=== PATIENT | female | born 1995 | race Caucasian/White ===

== ENCOUNTER 2024-04-01 19:45 | Inpatient (IN) | payer OTHER, SELFPAY ==
[2024-04-01 19:54] VITALS: BP 106/49; BMI 34.6
[2024-04-01] MEDS: CYTOTEC 50 MICROGRAM VAG (20:30)
[2024-04-01] MEDS: LR 1000 IV (20:30)
[2024-04-01 20:34] LABS: % Basophils 0.5 % (0-2); % Eosinophils 0.8 % (0-6); % Immature Granulocytes 3.7 % (0-0.5); % Lymphocytes 13.2 % (20.5-51.1); % Monocytes 6.6 % (1.7-9.3); % Neutrophils 75.2 % (42.2-75.2); Absolute Basophils 0.1 10^3/uL (0-0.2); Absolute Eosinophils 0.1 10^3/uL (0-0.7); Absolute Immature Granulocytes 0.6 10^3/uL (0-0.05); Absolute Neutrophils 11.2 10^3/uL (1.4-6.5); Hematocrit 35.8 % (37.0-47.0); Hemoglobin 12.5 g/dL (12.0-16.0); Mean Corp Hgb Conc. 34.9 g/dL (33.0-37.0); Mean Corpuscular Hgb 30.9 pg (27.0-31.0); Mean Corpuscular Volume 88.4 fL (81.0-99.0); Mean Platelet Volume 9.9 fL (7.4-10.4); Nucleated Red Blood Cells % 0 %; Platelet Count 299 10^3/uL (130-400); Red Blood Cell Count 4.05 10^6/uL (4.20-5.40); Red Cell Dist. Width 13.7 % (11.5-14.5); White Blood Cell Count 14.9 10^3/uL (4.8-10.8)
[2024-04-02] MEDS: SUBLIMAZE 100 MCG EPIDURAL (01:18)
[2024-04-02] MEDS: FENTANYL/BUPIVACAINE 100 EPIDURAL ×2 (01:19→09:06)
[2024-04-02] MEDS: PITOCIN 30 UNITS/NSS 500 ML IV (12:43)
[2024-04-02] MEDS: XYLOCAINE-MPF 1% VIAL 30 ML INFIL (13:03)
[2024-04-02] MEDS: SENOKOT-S 1 TABLET PO (16:45)
[2024-04-02] MEDS: MOTRIN 600 MG PO ×2 (16:45→23:50)
[2024-04-02] MEDS: ANUSOL HC 25 MG RECTAL (21:12)
[2024-04-03 05:21] LABS: Hematocrit 32.1 % (37.0-47.0); Hemoglobin 11.2 g/dL (12.0-16.0)
[2024-04-03] MEDS: MOTRIN 600 MG PO ×3 (07:07→20:44)
[2024-04-03] MEDS: TYLENOL 650 MG PO ×3 (07:09→20:45)
[2024-04-03] MEDS: PREPARATION H OINTMENT 1 APPLIC RECTAL ×2 (11:45→20:46)
[2024-04-03] MEDS: PRENATAL PLUS PO (11:45)
[2024-04-04] MEDS: TYLENOL 650 MG PO ×2 (04:47→12:00)
[2024-04-04] MEDS: MOTRIN 600 MG PO ×2 (04:48→12:00)
[2024-04-04] MEDS: PRENATAL PLUS 1 TABLET PO (08:32)
[2024-04-05 14:01] LABS: Syphilis/T. pallidum Ab Reflex Negative (Negative)
== END 2024-04-04 12:52 | disposition home or self-care (01) | DRG 806 ==
LOC: LDRP 19:45
PROVIDERS: Obstetrics & Gynecology; ADMITTING PHYSICIAN Obstetrics & Gynecology
PROC: 3E0P7VZ Introduction of Hormone into Female Reproductive, Via Natural or Artificial Opening (ICD-10-PCS; 2024-04-01)
PROC: 0KQM0ZZ Repair Perineum Muscle, Open Approach (ICD-10-PCS; 2024-04-02)
PROC: 10E0XZZ Delivery of Products of Conception, External Approach (ICD-10-PCS; 2024-04-02)
PROC: 10907ZC Drainage of Amniotic Fluid, Therapeutic from Products of Conception, Via Natural or Artificial Opening (ICD-10-PCS; 2024-04-02)
PROC: 10H07YZ Insertion of Other Device into Products of Conception, Via Natural or Artificial Opening (ICD-10-PCS; 2024-04-02)
PROC: 3E0E77Z Introduction of Electrolytic and Water Balance Substance into Products of Conception, Via Natural or Artificial Opening (ICD-10-PCS; 2024-04-02)
DX: O48.0 Post-term pregnancy (principal); O41.03X0 Oligohydramnios, third trimester, not applicable or unspecified; Z37.0 Single live birth; Z3A.41 41 weeks gestation of pregnancy; O70.1 Second degree perineal laceration during delivery
CPT/HCPCS: 88307; 36415; 85014; 85018; 85025; 86780; 86850; 86900; 86901

== ENCOUNTER 2024-11-08 14:09 | Emergency (ER) | payer OTHER, SELFPAY ==
[2024-11-08 14:19] VITALS: BP 126/91
[2024-11-08 14:23] VITALS: BMI 28.7
--- NOTE | 2024-11-08 15:42 | ED.GENMED ---
History of Present Illness
General
Chief Complaint: Breast Problem
Source: patient
Exam Limitations: none
Time Seen by Provider: 11/08/24 15:18
Nursing documentation reviewed up to this point in time: agreed with
History of Present Illness
History of Present Illness:
The patient is a 29-year-old female who complains of 1 to 2 days of mild redness, pain and swelling of her left breast. Patient is currently breast-feeding. She reports she has a history of mastitis several months ago and she is concerned it
starting to come back. Patient denies fevers and chills. She denies nausea and vomiting. She denies dizziness
Past History
Past History
ED Past Medical History: Psychiatric
ED Past Surgical History: Other
Social History
Tobacco: Non-smoker
Alcohol: None
Drug: None
Personal: Other
Living: with family
Employment: Employed
Family History
Family History: Other
Review of Systems
Review of Systems
Allergies reviewed?: Yes
All Other Systems: ROS reviewed and negative except as documented in HPI and ROS
Constitutional: Reports no symptoms
EENT: Reports no symptoms
Respiratory: Reports no symptoms
Cardiac: Reports no symptoms
ABD/GI: Reports no symptoms
: Reports no symptoms
Musculoskeletal: Reports no symptoms
Skin: Reports other
Neurological: Reports no symptoms
Endocrine: Reports no symptoms
Hematologic/Lymphatic: Reports no symptoms
Psychiatric: Reports no symptoms
Phy Exam
Physical Exam
Physical Exam:
Physical Exam
General: no apparent distress, not acutely ill
Neck: supple. no meningeal signs. normal psoterior pharynx
Heart: s1/s2 regular rate and rhythm, no murmur. equal radial pulses. Mild erythema of left breast, chest below her areola
Lungs: no acute respiratory distress. clear bilaterally
Abdomen: normal bowel sounds. not tender. no CVAT
Neuro: alert and oriented. no focal neurological deficits
Skin: no rash
Psychiatric: well kept. interactive and cooperative
Extremities: no edema. no calf tenderness. negative homans. good distal pulses
Course
Orders/Labs/Results
Orders:
Orders
11/08/24 15:58
Dicloxacillin [Dynapen] 500 mg PO NOW STA
Vital Signs
Initial and Last Documented VS:
Initial Vital Signs
Temp Pulse Resp BP Pulse Ox
98.5 F 99 18 126/91 99
11/08/24 14:19 11/08/24 14:19 11/08/24 14:19 11/08/24 14:19 11/08/24 14:19
Last Documented Vital Signs
Temp Pulse Resp BP Pulse Ox
98.5 F 99 18 126/91 99
11/08/24 14:19 11/08/24 14:19 11/08/24 14:19 11/08/24 14:19 11/08/24 14:19
MDM/Problems Addressed
Differential Diagnosis Includes:
Acute mastitis, acute breast abscess
MDM/Problems Addressed:
Patient presents with acute pain, redness and erythema of left breast
*Pulse Oximetry
Patient hypoxic: no
*EKG
Interpreted by ED Provider?: NA
*Drawing Tender Interpretation
Rate: Drawing Tender- N/A
*Critical Care Note
Total Time (30-74mins, 75-104mins- exclusive of procedures): Not Applicable
Data Reviewed
Source: patient
Patient Management
Social determinants of health affecting care: Living situation
Escalation/DeEscalation of care consider admission/obs:
Patient appears well without any fever. Patient will be treated for acute mastitis. I do not feel breast abscess on exam
ED Attending Note
-
Portions of this chart may have been created with voice recognition software.� Occasional wrong word or��sound alike� substitutions may have occurred due to the inherent limitations of voice recognition software.
Discharge Plan
Departure
Patient Disposition: Home (Routine Discharge)
Date of Disposition: 11/08/24
Time of Disposition: 16:27
Patient with high blood pressure during this ER visit?: Yes
Condition: Good
Covid-19: Not Applicable
Discharge Problem:
Mastitis, acute
Instructions: Mastitis, BLOOD PRESSURE
Prescriptions:
New
dicloxacillin 500 mg capsule
500 mg PO QID Qty: 23 0RF
No Action
prenat.vits,pete,[id number] Tablet
1 tab PO DAILY
acetaminophen 325 mg Tablet
650 mg PO Q4HPRN PRN (Reason: mild pain) Qty: 0 0RF
ibuprofen 600 mg Tablet
600 mg PO Q6HPRN PRN (Reason: moderate pain/cramps) Qty: 0 0RF
Referrals:
Mariana Gonzalez MD [Family Provider] -
Interventions
Interventions:
*Risk Screen - Suicide Last Done: 11/08/24 14:22
*General Assessment Last Done: 11/08/24 14:22
*Neglect/Abuse Screening Last Done: 11/08/24 14:22
ED- Fall Risk Assessment Last Done: 11/08/24 14:22
*ED COVID-19 Vaccine History Last Done: 11/08/24 14:22
*Nursing Disposition Last Done: 11/08/24 16:53
ED-Skin Assessment Last Done: 11/08/24 14:22
Discharge Date and Time
Discharge Date/Time: 11/08/24 16:53
Print Language: ETHIOPIAN
[2024-11-08] MEDS: DYNAPEN 500 MG PO (16:22)
== END 2024-11-08 16:53 | disposition home or self-care (01) ==
LOC: EMR 14:09
PROVIDERS: EMERGENCY PHYSICIAN Emergency Medicine; FAMILY PHYSICIAN Family Medicine
DX: N61.0 Mastitis without abscess (principal)
CPT/HCPCS: 99283